=== PATIENT | male | born 1960 | race Caucasian/White ===

== ENCOUNTER 2016-10-08 12:09 | Emergency (ER) | payer OTHER, BC ==
[~2016-10-08] VITALS: Ht 195.6 cm; Wt 113.6 kg
[~2016-10-08 12:09] MED LIST: ALEVE 220MG220 MG PO; AMOXICILLIN 8751 TAB PO; ASPIRIN 32325 MG/TAB PO; ASPIRIN 81M81 MG/TA2 PO; BP MED; IPRATROPIUM BROM3 M1 IH; LIPITOR20 MG PO; LOTREL 5/10MG C1 CAP PO; MOTRIN 600600 MG/TAB PO; PLAVIX 75MG TAB75 MG PO; PREDNISONE20 MG PO; PROAIR HFA0.09 MG/AC IH; RT ADVAIR HFA 1112 G IH; RT SPIRIVA18 MCG IH; TOPROL XL 25MG25 MG PO
[2016-10-08 12:18] VITALS: BP 145/81; TEMP 98.2
[2016-10-08] MEDS ORDERED: XANAX 0.5MG0.5 MG PO (12:46)
[2016-10-08] MEDS ORDERED: BYSTOLIC5 MG PO (12:47)
[2016-10-08] MEDS ORDERED: NORCO 325 MG-7.1 TAB PO (13:20)
[2016-10-08 13:33] VITALS: PULSE 90
== END 2016-10-08 13:33 | disposition home or self-care (01) ==
LOC: COL.ER 12:09
DX: S76.812A Strain of other specified muscles, fascia and tendons at thigh level, left thigh, initial encounter (principal); W01.198A Fall on same level from slipping, tripping and stumbling with subsequent striking against other object, initial encounter

== ENCOUNTER → 2016-10-09 | Outpatient (REF) ==
[~2016-10-09] MED LIST changes: +BYSTOLIC5 MG PO; +NORCO 325 MG-7.1 TAB PO; +XANAX 0.5MG0.5 MG PO
== END ==
LOC: WSOH 10:55
DX: Z02.89 Encounter for other administrative examinations (principal)

== ENCOUNTER → 2016-10-21 | Outpatient (CLI) | payer OTHER | LOC: COL.VAS 13:09 | DX: M79.89 Other specified soft tissue disorders (principal); Z87.828 Personal history of other (healed) physical injury and trauma ==

== ENCOUNTER → 2016-11-04 | Outpatient (CLI) | payer OTHER | LOC: COL.RAD 14:21 | DX: S86.812A Strain of other muscle(s) and tendon(s) at lower leg level, left leg, initial encounter (principal); S83.412A Sprain of medial collateral ligament of left knee, initial encounter; M25.462 Effusion, left knee; M71.22 Synovial cyst of popliteal space [Baker], left knee ==

== ENCOUNTER 2016-12-01 14:13 | Outpatient (RCR) | payer OTHER | END 2017-01-07 | LOC: WSOH | DX: S76.912D Strain of unspecified muscles, fascia and tendons at thigh level, left thigh, subsequent encounter (principal); W10.8XXD Fall (on) (from) other stairs and steps, subsequent encounter; Y99.0 Civilian activity done for income or pay | CPT/HCPCS: 24091; A6549 ==

== ENCOUNTER 2017-01-08 12:30 | Outpatient (RCR) | payer OTHER | END 2017-02-09 | disposition home or self-care (01) | LOC: MKS.ESL.PT | DX: S89.82XD Other specified injuries of left lower leg, subsequent encounter (principal); X58.XXXD Exposure to other specified factors, subsequent encounter | CPT/HCPCS: G0283-GP ==

== ENCOUNTER 2017-01-08 13:36 | Outpatient (RCR) | payer OTHER | END 2017-04-08 | LOC: WSOH | DX: S76.112D Strain of left quadriceps muscle, fascia and tendon, subsequent encounter (principal); M25.562 Pain in left knee; Z91.81 History of falling; W10.9XXD Fall (on) (from) unspecified stairs and steps, subsequent encounter; Y99.0 Civilian activity done for income or pay ==

== ENCOUNTER → 2018-04-28 | Outpatient (CLI) | payer OTHER | LOC: COL.PUL 10:52 | DX: Z02.71 Encounter for disability determination (principal); J43.9 Emphysema, unspecified ==

== ENCOUNTER → 2020-08-05 | Outpatient (CLI) | payer MEDICARE | LOC: COL.RAD 07-26 07:30 | DX: Z13.6 Encounter for screening for cardiovascular disorders (principal); Z87.891 Personal history of nicotine dependence ==

== ENCOUNTER → 2020-08-21 | Outpatient (CLI) | payer MEDICARE | LOC: COL.VAS 07-25 13:30 | DX: R07.9 Chest pain, unspecified (principal); I10 Essential (primary) hypertension; R42 Dizziness and giddiness ==

== ENCOUNTER → 2020-10-02 | Outpatient (CLI) | payer MEDICARE ==
[~2020-10-02] VITALS: Ht 195.6 cm; Wt 121.5 kg
[~2020-10-02] MED LIST changes: +00186-0370-20 IH; +VENTOLIN0.09 MG IH
[2020-10-02 07:58] VITALS: BP 105/74; PULSE 94
[2020-10-02 09:00] VITALS: BP 114/76; PULSE 93
[2020-10-02 09:15] VITALS: BP 106/75; PULSE 94
[2020-10-02 09:30] VITALS: BP 96/65; PULSE 87
== END ==
LOC: COL.RAD 07:28
DX: G44.89 Other headache syndrome (principal)
CPT/HCPCS: A9585; J2250; J2704

== ENCOUNTER → 2021-07-04 | Outpatient (CLI) | payer MEDICARE | LOC: COL.VAS 06-20 12:30 | DX: J44.9 Chronic obstructive pulmonary disease, unspecified (principal); F17.200 Nicotine dependence, unspecified, uncomplicated ==

== ENCOUNTER → 2021-07-28 | Outpatient (CLI) | payer MEDICARE | LOC: COL.RAD 12:46 | DX: Z12.2 Encounter for screening for malignant neoplasm of respiratory organs (principal); F17.210 Nicotine dependence, cigarettes, uncomplicated ==

== ENCOUNTER 2021-10-13 12:05 | Inpatient (IN) | payer MEDICARE ==
[~2021-10-13] VITALS: Ht 195.6 cm; Wt 126.8 kg
[2021-10-13 13:46] LABS: BASO % 0.6 % (0.0-2.0); EOS % 0.2 % (0.0-4.0); GRAN % 75.7 % (42.2-75.2); HEMATOCRIT 44.8 % (42.0-52.0); HEMOGLOBIN 14.9 g/dl (13.5-18.0); LYMPH # 0.9 K/mm3 (1.2-3.4); MEAN CELL VOLUME 99 fl (80.0-100.0); MEAN CORPUSCULAR HEMOGLOBIN 33 pg (27-31); MEAN CORPUSCULAR HGB CONC 33 g/dl (33.0-37.0); MEAN PLATELET VOLUME 9.9 fl (7.4-10.4); MONO # 0.3 K/mm3 (0.1-0.6); MONO % 6.1 % (1.7-9.3); PLATELET COUNT 177 K/mm3 (130-400); RED BLOOD COUNT 4.54 M/mm3 (4.20-5.60); REDCELL DISTRIBUTION WIDTH-CV 13.1 % (11.5-14.5)
[2021-10-13 14:07] LABS: ALANINE AMINOTRANSFERASE 109 U/L (0-55); ALBUMIN 3.3 gm/dL (3.4-4.8); ALKALINE PHOSPHATASE 44 U/L (40-150); ANION GAP 9 mmol/L (7-16); AST,SGOT 65 U/L (5-34); BILIRUBIN,TOTAL 0.5 mg/dL (0.2-1.2); BLOOD UREA NITROGEN 8 mg/dL (8-26); C-REACTIVE PROTEIN 3.54 mg/dL (0.00-0.50); CALCIUM 8.1 mg/dL (8.4-10.2); CARBON DIOXIDE 30 mmol/L (23-31); CHLORIDE 94 mmol/L (98-107); CREATININE, serum 0.82 mg/dL (0.72-1.25); GLUCOSE 106 mg/dL (70-99); POTASSIUM 4.1 mmol/L (3.5-4.5); SODIUM 133 mmol/L (136-145); TOTAL PROTEIN 5.8 gm/dL (6.2-8.1)
[2021-10-13 14:13] LABS: TROPONIN-I < 0.010 ng/mL (0.00-0.033)
[2021-10-13 19:53] VITALS: BP 132/78; PULSE 99; TEMP 99.6
[2021-10-13 23:42] VITALS: BP 98/66; PULSE 106; TEMP 98.8
[2021-10-14 06:01] VITALS: BP 109/68; PULSE 63; TEMP 98.7
--- NOTE | 2021-10-14 06:22 | NUR ---
Awake, alert, oriented x 3, verbal with clear responses, O2@6L per [place] in use, denies pain, tolerating medication regimen w/o issue, will continue to monitor.
[2021-10-14 08:39] VITALS: BP 112/66; PULSE 92; TEMP 97.6
--- NOTE | 2021-10-14 11:03 | NUR ---
Patient sleeping heavily, snoring, upon entering the room. Patient reported he finally got a decent night of sleep for the first time in 3-4 nights. Morning medications administered as ordered. Patient has no complaints/concerns at this time.
[2021-10-14 13:22] VITALS: BP 136/84; PULSE 91; TEMP 100
--- NOTE | 2021-10-14 14:40 | NUR ---
Social Work student tried to get ahold of patient's due to health condition in room for the intake. Patient's , Lisa ([id number]#[phone]), did not answer.
--- NOTE | 2021-10-14 15:59 | NUR ---
Patient running a low grade fever of 100.0. Dr. Joseph called for an order for tylenol. Tylenol administered.
[2021-10-14 16:00] VITALS: BP 128/78; PULSE 82; TEMP 99.1
[2021-10-14 19:40] VITALS: BP 131/77; PULSE 88; TEMP 98.1
[2021-10-14 23:53] VITALS: BP 117/77; PULSE 78; TEMP 98.2
[2021-10-15 04:08] VITALS: BP 117/73; PULSE 79; TEMP 98
[2021-10-15 07:54] VITALS: BP 138/87; PULSE 76; TEMP 97.6
--- NOTE | 2021-10-15 08:08 | NUR ---
Pt assessment complete. Pt has many complaints this morning as he did not sleep and would like something to help him sleep. Reports Xanax last night was not helpful with this. Explained POC with patient as well as medications. Pt also wanting "real food". Denies any pain at this time. Reports he wears 4L O2 at home and is "ready to get home". No further needs, call light within reach.
[2021-10-15 11:30] VITALS: BP 128/83; PULSE 76; TEMP 97.8
[2021-10-15] MEDS ORDERED: OMNICEF 300MG300 MG PO (13:27)
[2021-10-15] MEDS ORDERED: DECADRON6 MG PO (13:30)
[2021-10-15] MEDS ORDERED: MONODOX100 PO (14:13)
[2021-10-15] MEDS ORDERED: PROAIR HFA0.09 MG/AC IH ×2 (14:15)
--- NOTE | 2021-10-15 15:26 | NUR ---
Discharge paperwork and instructions reviewed with patient. All questions answered at this time. IV to RWrist dc'd catheter tip intact. Pt wheeled out of facility at this time.
== END 2021-10-15 15:27 | disposition home or self-care (01) | DRG 177 ==
LOC: COL.ER 12:05 → MEDICAL 14:42
PROVIDERS: Nurse Practitioner; ADMIT Student in an Organized Health Care Education/Training Program
PROC: XW033E5 Introduction of Remdesivir Anti-infective into Peripheral Vein, Percutaneous Approach, New Technology Group 5 (ICD-10-PCS; principal; 2021-10-13)
DX: U07.1 COVID-19 (principal); J96.21 Acute and chronic respiratory failure with hypoxia; E87.1 Hypo-osmolality and hyponatremia; I10 Essential (primary) hypertension; J98.6 Disorders of diaphragm; I48.91 Unspecified atrial fibrillation; F41.9 Anxiety disorder, unspecified; J44.9 Chronic obstructive pulmonary disease, unspecified; Z87.891 Personal history of nicotine dependence; Z99.81 Dependence on supplemental oxygen; Z86.73 Personal history of transient ischemic attack (TIA), and cerebral infarction without residual deficits; Z73.0 Burn-out
CPT/HCPCS: 99222-AI; 99232-AI; 99239; J0248; J0696; J1100; J1650; J7030; J7050